=== PATIENT | male | born 1975 | race Caucasian/White ===

== ENCOUNTER 2016-08-06 13:01 | Inpatient (IN) | payer SELFPAY ==
[~2016-08-06] VITALS: Ht 167.6 cm; Wt 70.3 kg
[2016-08-06] MEDS ORDERED: ONDANSETRON HCL 4MG/2ML VIAL IV STA ×2 (14:16→16:28)
[2016-08-06] MEDS ORDERED: MORPHINE SULFATE 4 MG/ML CPJ (NOT FOR IM USE) IV STA ×2 (14:16→16:28)
[2016-08-06] MEDS ORDERED: SODIUM CHLORIDE 0.9% 1,000 ML IV ONE (14:23)
[2016-08-06 14:54] LABS: HEMATOCRIT. 37.6 % (42.0-52.0); HEMOGLOBIN. 13.1 g/dL (14.0-18.0); MEAN CORPUSCULAR HEMOGLOBIN 33.3 pg (28.0-32.0); MEAN CORPUSCULAR HGB CONC 34.9 g/dL (31.0-37.0); MEAN CORPUSCULAR VOLUME 95.5 fL (80.0-94.0); MEAN PLATELET VOLUME 8.5 fl (7.4-10.4); PLATELET 251 x1000/uL (130-400); RED BLOOD CELL COUNT 3.94 mill/uL (4.7-6.1); RED CELL DISTRIBUTION WIDTH 13.2 % (11.6-14.6); WHITE BLOOD COUNT 12.1 x1000/uL (4.5-11.0)
[2016-08-06 15:01] LABS: DIFFERENTIAL COMMENT 1
[2016-08-06 15:02] LABS: INR 1.1
[2016-08-06 15:06] LABS: ALANINE AMINOTRANSFERASE 110 IU/L (13-61); ALBUMIN 3.9 g/dL (3.4-5.0); ANION GAP 15; CALCIUM 9.4 mg/dL (8.5-10.1); CARBON DIOXIDE 25 mEq/L (21-32); CHLORIDE 100 mEq/L (98-107); INDEX HEMOLYSI 1 (1-3); INDEX ICTERIC 1 (1-4); INDEX LIPEMIC 1 (1-3); LIPASE 186 IU/L (73-393); UREA NITROGEN BLOOD 17 mg/dL (7-21); eGFR 35 mL/min (>60)
[2016-08-06 15:24] LABS: PLATELET ESTIMATE NORMAL
[2016-08-06 20:20] VITALS: BP 133/87
[2016-08-06 20:37] LABS: HEMATOCRIT 35.1 % (42.0-52.0); HEMOGLOBIN 12.2 g/dL (14.0-18.0); MEAN CORPUSCULAR HEMOGLOBIN 33.4 pg (28.0-32.0); MEAN CORPUSCULAR HGB CONC 34.8 g/dL (31.0-37.0); MEAN CORPUSCULAR VOLUME 96.2 fL (80.0-94.0); PLATELET 227 x1000/uL (130-400); RED BLOOD CELL COUNT 3.65 mill/uL (4.7-6.1); RED CELL DISTRIBUTION WIDTH 13.1 % (11.6-14.6); WHITE BLOOD COUNT 10.9 x1000/uL (4.5-11.0)
[2016-08-06 22:20] VITALS: BP 133/87
[2016-08-06 22:37] VITALS: BP 133/87
[2016-08-06] MEDS ORDERED: LORAZEPAM 2MG/ML CPJ IV PRN (23:30)
[2016-08-06] MEDS: ONDANSETRON HCL 4MG/2ML VIAL IV PRN (23:59)
[2016-08-06] MEDS: MORPHINE SULFATE 4 MG/ML CPJ (NOT FOR IM USE) IV PRN (23:59)
[2016-08-07] VITALS: BP 111/72
[2016-08-07] MEDS ORDERED: LEVOFLOXACIN 500MG PREMIX 100 ML IV NR (03:00)
[2016-08-07] MEDS ORDERED: MVI, ADULT NO.1 10 ML, FOLIC ACID 1 MG, THIAMINE HCL 100 MG in SODIUM CHLORIDE 0.9% 1,0... IV ONE ×4 (03:00)
[2016-08-07 04:00] VITALS: BP 115/87
[2016-08-07] MEDS: MORPHINE SULFATE 4 MG/ML CPJ (NOT FOR IM USE) IV PRN ×3 (05:41→20:49)
[2016-08-07 06:57] LABS: BASOPHILS % 0.5 % (0.0-2.0); HEMATOCRIT. 36.8 % (42.0-52.0); HEMOGLOBIN. 12.5 g/dL (14.0-18.0); MEAN CORPUSCULAR HEMOGLOBIN 33.2 pg (28.0-32.0); MEAN CORPUSCULAR VOLUME 97.8 fL (80.0-94.0); MEAN PLATELET VOLUME 8.5 fl (7.4-10.4); MONOCYTES % 8.9 % (2.0-8.0); NEUTROPHILS % 82.6 % (40.0-76.0); PLATELET 187 x1000/uL (130-400); RED BLOOD CELL COUNT 3.76 mill/uL (4.7-6.1); RED CELL DISTRIBUTION WIDTH 13.2 % (11.6-14.6); WHITE BLOOD COUNT 11.4 x1000/uL (4.5-11.0)
[2016-08-07 07:08] LABS: CALCIUM 8.8 mg/dL (8.5-10.1)
[2016-08-07 08:30] VITALS: BP 126/83
[2016-08-07] MEDS: PANTOPRAZOLE SODIUM 40 MG/VIAL IV SCH (08:34)
[2016-08-07] MEDS ORDERED: SODIUM CHLORIDE 0.9% 500 ML IV NR (12:20)
[2016-08-07] MEDS: SODIUM CHLORIDE 0.9% 1,000 ML IV SCH ×3 (13:16→22:43)
[2016-08-07] MEDS ORDERED: LIDOCAINE HCL 1% 20ML VIAL (Pyxis) INJ ONE (13:31)
[2016-08-07] MEDS ORDERED: SODIUM BICARBONATE 4.2% 5 MEQ/10 ML DISP.SYRIN IV ONE (13:31)
[2016-08-07 16:00] VITALS: BP 118/87
[2016-08-07 17:44] LABS: HEMATOCRIT 35.2 % (42.0-52.0); HEMOGLOBIN 12.1 g/dL (14.0-18.0); MEAN CORPUSCULAR HEMOGLOBIN 33.7 pg (28.0-32.0); MEAN CORPUSCULAR HGB CONC 34.4 g/dL (31.0-37.0); MEAN CORPUSCULAR VOLUME 98.2 fL (80.0-94.0); PLATELET 130 x1000/uL (130-400); RED BLOOD CELL COUNT 3.58 mill/uL (4.7-6.1); RED CELL DISTRIBUTION WIDTH 12.9 % (11.6-14.6); WHITE BLOOD COUNT 9.3 x1000/uL (4.5-11.0)
[2016-08-07 17:46] LABS: CREATINE KINASE 115 IU/L (39-308); INDEX HEMOLYSI 1 (1-3)
[2016-08-07 20:00] VITALS: BP 109/73
[2016-08-08] VITALS: BP 118/76
[2016-08-08] MEDS ORDERED: LEVOFLOXACIN 250MG PREMIX 50 ML IV SCH (03:00)
[2016-08-08 04:00] VITALS: BP 95/59
[2016-08-08] MEDS: SODIUM CHLORIDE 0.9% 1,000 ML IV SCH ×3 (07:10→21:32)
[2016-08-08] MEDS: MORPHINE SULFATE 4 MG/ML CPJ (NOT FOR IM USE) IV PRN ×2 (07:11→14:50)
[2016-08-08 07:17] LABS: ALANINE AMINOTRANSFERASE 58 IU/L (13-61); ALBUMIN 2.5 g/dL (3.4-5.0); ANION GAP 14; CALCIUM 8.1 mg/dL (8.5-10.1); CARBON DIOXIDE 22 mEq/L (21-32); CHLORIDE 106 mEq/L (98-107); INDEX HEMOLYSI 1 (1-3); INDEX ICTERIC 1 (1-4); INDEX LIPEMIC 1 (1-3); PHOSPHORUS 2.2 mg/dL (2.5-4.9); UREA NITROGEN BLOOD 13 mg/dL (7-21); eGFR > 60 mL/min (>60)
[2016-08-08 07:32] LABS: BASOPHILS % 0.5 % (0.0-2.0); EOSINOPHILS % 0.2 % (0.0-5.0); HEMATOCRIT. 32.6 % (42.0-52.0); HEMOGLOBIN. 11.3 g/dL (14.0-18.0); LYMPHOCYTES % 14.7 % (20.0-50.0); MEAN CORPUSCULAR HEMOGLOBIN 33.8 pg (28.0-32.0); MEAN CORPUSCULAR HGB CONC 34.8 g/dL (31.0-37.0); MEAN CORPUSCULAR VOLUME 97.3 fL (80.0-94.0); MEAN PLATELET VOLUME 8.6 fl (7.4-10.4); MONOCYTES % 8.5 % (2.0-8.0); NEUTROPHILS % 76.1 % (40.0-76.0); PLATELET 161 x1000/uL (130-400); RED BLOOD CELL COUNT 3.35 mill/uL (4.7-6.1); RED CELL DISTRIBUTION WIDTH 12.9 % (11.6-14.6); WHITE BLOOD COUNT 7.3 x1000/uL (4.5-11.0)
[2016-08-08 08:00] VITALS: BP 106/65
[2016-08-08] MEDS: PANTOPRAZOLE SODIUM 40 MG/VIAL IV SCH (09:03)
[2016-08-08 12:00] VITALS: BP 100/60
[2016-08-08 16:00] VITALS: BP 105/64
[2016-08-08] MEDS ORDERED: POTASSIUM PHOS,M-BASIC-D-BASIC 15 MMOL in DEXT 5% WATER 245 ML IV NR (17:30)
[2016-08-08 20:00] VITALS: BP 109/68
[2016-08-08] MEDS: ONDANSETRON HCL 4MG/2ML VIAL IV PRN (21:31)
[2016-08-09] VITALS: BP 97/55
[2016-08-09] MEDS ORDERED: LEVOFLOXACIN 500MG PREMIX 100 ML IV SCH (03:00)
[2016-08-09 04:00] VITALS: BP 106/60
[2016-08-09] MEDS: SODIUM CHLORIDE 0.9% 1,000 ML IV SCH (05:26)
[2016-08-09 07:13] LABS: BASOPHILS % 0.6 % (0.0-2.0); EOSINOPHILS % 0.5 % (0.0-5.0); HEMATOCRIT. 31.9 % (42.0-52.0); HEMOGLOBIN. 11.2 g/dL (14.0-18.0); LYMPHOCYTES % 19.3 % (20.0-50.0); MEAN CORPUSCULAR HEMOGLOBIN 33.7 pg (28.0-32.0); MEAN CORPUSCULAR HGB CONC 35.2 g/dL (31.0-37.0); MEAN CORPUSCULAR VOLUME 95.7 fL (80.0-94.0); MEAN PLATELET VOLUME 8.7 fl (7.4-10.4); MONOCYTES % 11.8 % (2.0-8.0); NEUTROPHILS % 67.8 % (40.0-76.0); PLATELET 165 x1000/uL (130-400); RED BLOOD CELL COUNT 3.33 mill/uL (4.7-6.1); RED CELL DISTRIBUTION WIDTH 12.5 % (11.6-14.6)
[2016-08-09 07:15] LABS: ALANINE AMINOTRANSFERASE 76 IU/L (13-61); ALBUMIN 2.5 g/dL (3.4-5.0); CALCIUM 8.3 mg/dL (8.5-10.1); CARBON DIOXIDE 28 mEq/L (21-32); INDEX HEMOLYSI 1 (1-3); INDEX ICTERIC 1 (1-4); INDEX LIPEMIC 1 (1-3); UREA NITROGEN BLOOD 6 mg/dL (7-21); eGFR > 60 mL/min (>60)
[2016-08-09 07:17] LABS: ANION GAP 13; CHLORIDE 104 mEq/L (98-107); MAGNESIUM 2.1 mg/dL (1.8-2.4)
[2016-08-09 08:00] VITALS: BP 100/62
[2016-08-09] MEDS ORDERED: FAMOTIDINE 20MG TABLET PO SCH (09:00)
[2016-08-09 12:00] VITALS: BP 110/70
[2016-08-09 12:27] LABS: CLARITY URINE CLOUDY (CLEAR); COLOR URINE YELLOW (YELLOW); GLUCOSE URINE NEGATIVE (NEGATIVE); KETONES URINE NEGATIVE (NEGATIVE); LEUKOCYTE ESTERASE URINE NEGATIVE (NEGATIVE); NITRITE URINE NEGATIVE (NEGATIVE); OCCULT BLOOD URINE 3+ (NEGATIVE); PROTEIN URINE NEGATIVE (NEGATIVE); SPECIFIC GRAVITY URINE 1.015 (1.005-1.030)
[2016-08-09 12:43] LABS: SQUAMOUS EPITHELIAL CELL URINE NONE SEEN /lpf (RARE/1+)
[2016-08-09 12:44] LABS: BACTERIA URINE TRACE; MUCUS URINE TRACE /lpf (NONE/TRACE)
[2016-08-09 12:45] LABS: RBC URINE 50-100 /hpf (0-2); WBC URINE 0-2 /hpf (0-2)
[2016-08-09] MEDS ORDERED: THIAMINE HCL 100 MG in SODIUM CHLORIDE 0.9% 49 ML IV NR (15:00)
[2016-08-09 16:00] VITALS: BP 107/65
[2016-08-09] MEDS: THIAMINE HCL 100 MG in SODIUM CHLORIDE 0.9% 49 ML IV NR ×2 (16:24→16:30)
[2016-08-09] MEDS ORDERED: ACETAMINOPHEN 325MG TABLET PO NR (17:00)
[2016-08-09 17:07] VITALS: BP 107/65
== END 2016-08-09 18:15 | disposition home or self-care (01) | DRG 253 ==
LOC: ER 13:28 → 5WST 16:09
PROVIDERS: ADMIT Internal Medicine; ATTEND Internal Medicine
PROC: 0W9G30Z Drainage of Peritoneal Cavity with Drainage Device, Percutaneous Approach (ICD-10-PCS; principal; 2016-08-07)
DX: K66.1 Hemoperitoneum (principal); N17.9 Acute kidney failure, unspecified; E87.2 Acidosis; E46 Unspecified protein-calorie malnutrition; R18.8 Other ascites; E83.39 Other disorders of phosphorus metabolism; Y93.01 Activity, walking, marching and hiking; D72.829 Elevated white blood cell count, unspecified; F10.10 Alcohol abuse, uncomplicated; V03.90XA Pedestrian on foot injured in collision with car, pick-up truck or van, unspecified whether traffic or nontraffic accident, initial encounter; Y92.488 Other paved roadways as the place of occurrence of the external cause; Y99.8 Other external cause status; Z68.25 Body mass index [BMI] 25.0-25.9, adult
CPT/HCPCS: 36415; 49083; 71010; 71250; 72125; 72170; 73030; 74176; 76770; 80048; 80053; 81001; 82550; 83690; 83735; 84100; 85025; 85027; 85610; 85730; 86850; 86900; 86920; 93005; 96361; 96374; 96375; 96376; 99291; C9113; G0482; J1956; J2060; J2270; J2405; J3411; J3490; J7030; J7040; J7060; A4315